=== PATIENT | female | born 1960 | race Caucasian/White ===

== ENCOUNTER 2019-08-14 21:01 | Emergency (ER) | payer OTHER ==
[2019-08-14 21:11] VITALS: TEMP 98.2; BMI 41.5
[2019-08-14] MEDS ORDERED: IBUPROFEN 400 MG TABLET (FP) PO ONE ×2 (22:47→23:06)
[2019-08-14] MEDS ORDERED: ACETAMINOPHEN 325 MG TABLET (FP) PO ONE (22:47)
[2019-08-14] MEDS ORDERED: LIDOCAINE 5% TOPICAL PATCH TP ONE (22:47)
[2019-08-14] MEDS ORDERED: ACETAMINOPHEN 325 MG TABLET (FP) ONE (23:06)
[2019-08-14] MEDS ORDERED: LIDOCAINE 5% TOPICAL PATCH ONE (23:07)
--- NOTE | 2019-08-15 01:52 | PDOC ---
History of Present Illness - General Chief Complaint: Pain Stated Complaint: LL PAIN Time Seen by Provider: 08/14/19 21:51 History Source: Patient Exam Limitations: No Limitations Past History - Travel Traveled outside of the country in the last 30 days: No Close contact w/someone who was outside of country & ill: No - Past Medical History Allergies/Adverse Reactions: Allergies Allergy/AdvReac Type Severity Reaction Status Date / Time No Known Allergies Allergy Verified 08/14/19 21:11 Home Medications: Ambulatory Orders Acetaminophen [Tylenol -] 650 mg PO Q4H #60 tablet 08/15/19 Ibuprofen 600 mg PO Q6H #30 tablet 08/15/19 Cancer: Yes (uterus and breast) COPD: No Diabetes: Yes HTN: Yes Other medical history: Osteoarthritis - Psycho Social/Smoking Cessation Hx Smoking History: Never smoked Review of Systems - Review of Systems Able to Perform ROS?: Yes Comments:: 08/15/19 01:46 CONSTITUTIONAL: Absent: fever, chills, diaphoresis, generalized weakness, malaise, loss of appetite HEENT: Absent: rhinorrhea, nasal congestion, throat pain, throat swelling, difficulty swallowing, mouth swelling, ear pain, eye pain, visual Changes CARDIOVASCULAR: Absent: chest pain, loss of consciousness, palpitations, irregular heart rate, peripheral edema RESPIRATORY: Absent: cough, shortness of breath, dyspnea with exertion, orthopnea, wheezing, stridor, hemoptysis GASTROINTESTINAL: Absent: abdominal pain, abdominal distension, nausea, vomiting, diarrhea, constipation, melena, hematochezia GENITOURINARY: Absent: dysuria, frequency, urgency, hesitancy, hematuria, flank pain, genital pain MUSCULOSKELETAL: Present: Left leg pain absent: myalgia, arthralgia, joint swelling SKIN: Absent: rash, itching, pallor HEMATOLOGIC/IMMUNOLOGIC: Absent: easy bleeding, easy bruising, lymphadenopathy, frequent infections ENDOCRINE: Absent: unexplained weight gain, unexplained weight loss, heat intolerance, cold intolerance NEUROLOGIC: Absent: headache, focal weakness or paresthesias, dizziness, unsteady gait, seizure, mental status changes, bladder or bowel incontinence PSYCHIATRIC: Absent: anxiety, depression, suicidal or homicidal ideation, hallucinations. Is the patient limited Urdu proficient: No *Physical Exam - Vital Signs Last Vital Signs Temp Pulse Resp BP Pulse Ox 98.2 F 89 19 131/52 L 97 08/14/19 21:05 08/14/19 21:05 08/14/19 21:05 08/14/19 21:05 08/14/19 21:05 - Physical Exam 08/15/19 01:46 07/07/19 11:56 GENERAL: Well developed, well nourished. Awake and alert. No acute distress. NECK: Supple. Full ROM. No lymphadenopathy. MUSCULOSKELETAL Normal range of motion at all joints. No bony deformities or tenderness. No CVA tenderness. EXTREMITIES: No cyanosis. No clubbing. No edema. (+) L calf tenderness. SKIN: Warm and dry. Normal capillary refill. No rashes. No jaundice. NEUROLOGICAL: Alert, awake, appropriate. Cranial nerves 2-12 intact. No deficits to light touch and temperature in face, upper extremities and lower extremities. No motor deficits in the in face, upper extremities and lower extremities. Normoreflexic in the upper and lower extremities. Normal speech. Toes are down-going bilaterally. Gait is normal without ataxia. PSYCHIATRIC: Cooperative. Good eye contact. Appropriate mood and affect. ED Treatment Course - RADIOLOGY Radiology Studies Ordered: Category Date Time Status DUPLEX VASCUL US-1 LEG [US] Stat Ultrasound 08/14/19 22:47 Taken - Medications Given in the ED: ED Medications Discontinued Medications Generic Name Dose Route Start Last Admin Trade Name Nileshq PRN Reason Stop Dose Admin Acetaminophen 1,000 mg 08/14/19 22:47 08/14/19 23:15 Tylenol - PO 08/14/19 22:48 1,000 mg ONCE ONE Administration Ibuprofen 800 mg 08/14/19 22:47 08/14/19 23:14 Motrin - PO 08/14/19 22:48 800 mg ONCE ONE Administration Lidocaine 1 patch 08/14/19 22:47 08/14/19 23:14 Lidoderm Patch - TP 08/14/19 22:48 1 patch ONCE ONE Administration Medical Decision Making - Medical Decision Making 08/15/19 01:46 Patient is a 59-year-old female with past medical history of HTN, DM, breast and uterine cancer, presents to the ER today for left lower leg pain. She states that she has had this left leg pain for 3 weeks. She states the pain is located mostly in her calf and it hurts to walk. She called 911 tonight because she was walking to the pizza store and states the pain got too bad and she could not walk. Denies numbness and tingling weakness the affected extremity. A/P: Left leg pain On exam patient with tenderness to palpation of the left calf. No bruising noted. Left knee exam is normal. Special testing is negative for acute pathology. Lidocaine patch, Tylenol and Motrin Motrin given with some relief of symptoms. Duplex of the left leg is negative for blood clots. Likely a muscle strain. Discharge home with supportive therapy and orthopedic follow-up. I discussed the physical exam findings, ancillary test results and final diagnoses with the patient. I answered all of the patient's questions. The patient was satisfied with the care received and felt comfortable with the discharge plan and treatment plan. The Patient agrees to follow up with the primary care physician/specialist within 24-72 hours. Return precautions were given. Discharge - Discharge Information Problems reviewed: Yes Clinical Impression/Diagnosis: Leg pain, left Condition: Stable Disposition: HOME - Admission No - Follow up/Referral Referrals: Ruperto Thompson [Primary Care Provider] - - Patient Discharge Instructions Patient Printed Discharge Instructions: DI for Leg Pain Additional Instructions: You were evaluated for your leg pain today. You most likely strained a muscle. Your ultrasound did not show any blood clots. Please take Tylenol and Motrin as needed for pain. Please follow-up with your primary care doctor and orthopedist regarding this issue this week. A referral has been provided. Return to the ER for any new or worsening symptoms. - Post Discharge Activity
[2019-08-15 07:04] VITALS: BP 144/66; PULSE 66
== END 2019-08-15 03:47 | disposition home or self-care (01) ==
LOC: JERFT 21:01 → JER 21:01
DX: M79.662 Pain in left lower leg (principal); I10 Essential (primary) hypertension; E11.9 Type 2 diabetes mellitus without complications; M19.90 Unspecified osteoarthritis, unspecified site; Z85.3 Personal history of malignant neoplasm of breast; Z85.42 Personal history of malignant neoplasm of other parts of uterus
CPT/HCPCS: 93971-TC; 99284-25